=== PATIENT | male | born 1940 | race Caucasian/White ===

== ENCOUNTER → 2016-08-22 | Outpatient (CLI) | payer MEDICARE | END | disposition home or self-care (01) | LOC: PCVCCLINIC 12:00 | PROVIDERS: ATTEND Internal Medicine Cardiovascular Disease | DX: I10 Essential (primary) hypertension (principal); I71.2 Thoracic aortic aneurysm, without rupture; E78.00 Pure hypercholesterolemia, unspecified; Z79.82 Long term (current) use of aspirin; Z79.899 Other long term (current) drug therapy | CPT/HCPCS: 80061; 93005; G0463 ==

== ENCOUNTER → 2017-02-10 | Outpatient (CLI) | payer MEDICARE ==
--- NOTE | 2017-02-10 16:56 | PCVCIMAG ---
APPROVED REPORT Study performed: 02/10/2017 13:34:22 EXAM: Comprehensive 2D, Doppler, and color-flow Echocardiogram Patient Location: Echo lab Status: routine BSA: 2.00 HR: 63 bpmBP: 112/70 mmHg Rhythm: NSR Other Information Study Quality: Adequate Risk Factors: Cardiac Risk Factors: HTN, Hyperlipidemia Indications Fatigue Ascending aortic aneurysm 2D Dimensions LVEF(%): 62.07 (>50%) IVSd: 8.52 (7-11mm)LVOT Diam: 20.65 (18-24mm) LVDd: 51.99 mm PWd: 9.22 (7-11mm)Ascending Ao: 49.00 (22-36mm) LVDs: 34.49 (25-40mm) Left Atrium: 30.58 (27-40mm) Aortic Root: 43.64 mm LV Single Plane 4CH: 69.72 % LV Single Plane 2CH: 67.18 %Ritter's LVEF: 68.45 % Biplane EF: 70.1 % Volumes Left Atrial Volume (Systole) Single Plane 4CH: 39.40 mLSingle Plane 2CH: 43.49 mL LA ESV Index: 23.00 mL/m2 Aortic Valve AoV Peak Gagandeep.: 1.37 m/s AO Peak Gr.: 7.56 mmHgLVOT Max P.35 mmHg LVOT Max V: 1.04 m/s OSMANY Vmax: 2.54 cm2 AI Vmax: 4.44 m/s AI [place]: 1.61 m/s2 AI PHT: 799.48 ms Mitral Valve E/A Ratio: 0.7 MV Decel. Time: 373.62 ms MV E Max Gagandeep.: 0.54 m/s MV A Gagandeep.: 0.76 m/s IVRT: 106.11 ms TDI E/Lateral E': 9.00E/Medial E': 18.00 Medial E' Gagandeep.: 0.03 m/s Lateral E' Gagandeep.: 0.06 m/s Pulmonary Valve PV Peak Gagandeep.: 0.91 m/sPV Peak Gr.: 3.34 mmHg IL End Vmax: 1.03 m/s Pulmonary Vein P Vein S: 0.54 m/sP Vein A: 0.29 m/s P Vein D: 0.31 m/sP Vein A Dur.: 138.4 msec P Vein S/D Ratio: 1.74 Tricuspid Valve TR Peak Gagandeep.: 2.62 m/sRAP Estimate: 7.00 mmHg TR Peak Gr.: 27.45 mmHg PA Pressure: 35.00 mmHg Left Ventricle Left ventricle is borderline dilated. There is normal LV segmental wall motion. There is normal left ventricular wall thickness. Left ventricular systolic function is normal. The left ventricular ejection fraction is within the normal range. LVEF is 65-70%. Grade I - abnormal relaxation pattern. Right Ventricle The right ventricle is normal size. The right ventricular systolic function is normal. Atria The left atrium size is normal. The right atrium size is normal. Aortic Valve The aortic valve is normal in structure. Mild aortic regurgitation. There is no aortic valvular stenosis. Mitral Valve The mitral valve is normal in structure. Mild to moderate mitral regurgitation. No evidence of mitral valve stenosis. Tricuspid Valve The tricuspid valve is normal in structure. Mild tricuspid regurgitation.Pulmonary artery pressure is 35 mmHg. Pulmonic Valve The pulmonary valve is normal in structure. Mild pulmonic regurgitation. Great Vessels Aortic root is mildly dilated. Ascending aorta is 4.9 cm. IVC is normal in size and collapses with >50% inspiration. Pericardium There is no pericardial effusion. <Conclusion> Left ventricle is borderline dilated. Left ventricular systolic function is normal. The left ventricular ejection fraction is within the normal range. LVEF is 65-70%. Grade I - abnormal relaxation pattern. The right ventricle is normal size. The left atrium size is normal. Mild aortic regurgitation. There is no aortic valvular stenosis. Mild to moderate mitral regurgitation. Mild tricuspid regurgitation.Pulmonary artery pressure is 35 mmHg. There is no pericardial effusion.
== END | disposition home or self-care (01) ==
LOC: PCVCIMAG 13:29
PROVIDERS: ATTEND Internal Medicine Cardiovascular Disease
DX: I08.3 Combined rheumatic disorders of mitral, aortic and tricuspid valves (principal); I10 Essential (primary) hypertension; I71.2 Thoracic aortic aneurysm, without rupture; E78.00 Pure hypercholesterolemia, unspecified; R00.1 Bradycardia, unspecified; R53.83 Other fatigue; Z79.82 Long term (current) use of aspirin; Z79.899 Other long term (current) drug therapy
CPT/HCPCS: 80061; 93005; 93306; G0463

== ENCOUNTER → 2017-11-11 | Outpatient (CLI) | payer MEDICARE ==
--- NOTE | 2017-11-11 12:50 | PCVCIMAG ---
APPROVED REPORT Study performed: 11/11/2017 11:06:59 EXAM: Comprehensive 2D, Doppler, and color-flow Echocardiogram Patient Location: Echo lab Status: routine BSA: 2.00 HR: 56 bpmBP: 124/72 mmHg Rhythm: NSR Other Information Study Quality: Adequate Risk Factors: Cardiac Risk Factors: HTN, Hyperlipidemia Indications Ascending Aortic Aneurysm 2D Dimensions LVEF(%): 68.35 (>50%) IVSd: 8.86 (7-11mm)LVOT Diam: 20.00 (18-24mm) LVDd: 50.50 mm PWd: 8.74 (7-11mm)Ascending Ao: 48.83 (22-36mm) LVDs: 31.13 (25-40mm) Left Atrium: 32.71 (27-40mm) Aortic Root: 44.49 mm LV Single Plane 4CH: 65.64 % LV Single Plane 2CH: 70.00 %Ritter's LVEF: 67.82 % Biplane EF: 72.1 % Volumes Left Atrial Volume (Systole) Single Plane 4CH: 24.92 mLSingle Plane 2CH: 51.41 mL LA ESV Index: 21.00 mL/m2 Aortic Valve AoV Peak Gagandeep.: 1.24 m/s AO Peak Gr.: 6.14 mmHgLVOT Max P.72 mmHg LVOT Max V: 0.96 m/s OSMANY Vmax: 2.50 cm2 AI Vmax: 3.87 m/s AI [place]: 1.37 m/s2 AI PHT: 828.37 ms Mitral Valve E/A Ratio: 0.7 MV Decel. Time: 438.47 ms MV E Max Gagandeep.: 0.43 m/s MV A Gagandeep.: 0.63 m/s MV PHT: 127.16 ms IVRT: 83.04 ms TDI E/Lateral E': 8.60E/Medial E': 8.60 Medial E' Gagandeep.: 0.05 m/s Lateral E' Gagandeep.: 0.05 m/s Pulmonary Valve PV Peak Gagandeep.: 0.83 m/sPV Peak Gr.: 2.73 mmHg ND End Vmax: 1.12 m/s Pulmonary Vein P Vein S: 0.58 m/sP Vein A: 0.24 m/s P Vein D: 0.33 m/sP Vein A Dur.: 124.6 msec P Vein S/D Ratio: 1.76 Tricuspid Valve TR Peak Gagandeep.: 2.55 m/sRAP Estimate: 7.00 mmHg TR Peak Gr.: 25.95 mmHg PA Pressure: 33.00 mmHg Left Ventricle Left ventricle is borderline dilated. There is normal LV segmental wall motion. There is normal left ventricular wall thickness. Left ventricular systolic function is normal. The left ventricular ejection fraction is within the normal range. LVEF is 65-70%. Grade I - abnormal relaxation pattern. Right Ventricle The right ventricle is normal size. The right ventricular systolic function is normal. Atria The left atrium size is normal. The right atrium size is normal. Aortic Valve The aortic valve is normal in structure. Mild aortic regurgitation. There is no aortic valvular stenosis. Mitral Valve The mitral valve is normal in structure. Mild to moderate mitral regurgitation. No evidence of mitral valve stenosis. Tricuspid Valve The tricuspid valve is normal in structure. Mild to moderate tricuspid regurgitation. Pulmonary artery pressure is 33 mmHg. Pulmonic Valve The pulmonary valve is normal in structure. Mild pulmonic regurgitation. Great Vessels The aortic root is dilated at 4.4 cm. The ascending aorta is dilated at 4.9 cm. IVC is normal in size and collapses >50% with inspiration. Pericardium There is no pericardial effusion. <Conclusion> Left ventricle is borderline dilated. LVEF is 65-70%. Grade I - abnormal relaxation pattern. The right ventricle is normal size. The left atrium size is normal. The aortic valve is normal in structure. There is no aortic valvular stenosis. Mild to moderate mitral regurgitation. Mild to moderate tricuspid regurgitation. Pulmonary artery pressure is 33 mmHg. Mild pulmonic regurgitation. The aortic root is dilated at 4.4 cm. The ascending aorta is dilated at 4.9 cm. There is no pericardial effusion.
== END | disposition home or self-care (01) ==
LOC: PCVCIMAG 13:20
PROVIDERS: ATTEND Internal Medicine Cardiovascular Disease
DX: I08.1 Rheumatic disorders of both mitral and tricuspid valves (principal); I71.2 Thoracic aortic aneurysm, without rupture; I10 Essential (primary) hypertension; E78.00 Pure hypercholesterolemia, unspecified; Z79.82 Long term (current) use of aspirin
CPT/HCPCS: 93005; 93306; G0463

== ENCOUNTER → 2018-06-30 | Outpatient (CLI) | payer MEDICARE | END | disposition home or self-care (01) | LOC: PCVCCLINIC 13:35 | PROVIDERS: ATTEND Internal Medicine Cardiovascular Disease | DX: I71.2 Thoracic aortic aneurysm, without rupture (principal); E78.00 Pure hypercholesterolemia, unspecified; I10 Essential (primary) hypertension; I34.0 Nonrheumatic mitral (valve) insufficiency | CPT/HCPCS: 36415; 80061; 93005; G0463 ==

== ENCOUNTER → 2018-07-08 | Outpatient (CLI) | payer MEDICARE ==
--- NOTE | 2018-07-08 10:46 | PCVCIMAG ---
APPROVED REPORT Study performed: 07/08/2018 10:11:56 EXAM: Comprehensive 2D, Doppler, and color-flow Echocardiogram Patient Location: Echo lab Status: routine BSA: 2.00 BP: 140/90 mmHg Rhythm: NSR Other Information Study Quality: Adequate Risk Factors: Cardiac Risk Factors: HTN, Hyperlipidemia, Dilated Ascending Aorta Indications Limited echo for RV size and pulmonary artery pressure. Left Ventricle normal lv size 55-60% Right Ventricle Right ventricle is mildly dilated. Atria normal upper limits normal Aortic Valve Trace aortic regurgitation. Tricuspid Valve Trace tricuspid regurgitation. Pulmonary artery pressure is 34mmhg. Great Vessels The ascending aorta is dilated measuring 5.0cm. responsive <Conclusion> normal lv size 55-60% Right ventricle is mildly dilated. pa pressure 35mmhg normal upper limits normal Trace aortic regurgitation. responsive The ascending aorta is dilated measuring 5.0cm.
== END | disposition home or self-care (01) ==
LOC: PCVCIMAG 07:26
PROVIDERS: ATTEND Internal Medicine Cardiovascular Disease
DX: I26.99 Other pulmonary embolism without acute cor pulmonale (principal); I10 Essential (primary) hypertension; E78.00 Pure hypercholesterolemia, unspecified; I71.2 Thoracic aortic aneurysm, without rupture; Z79.82 Long term (current) use of aspirin
CPT/HCPCS: 93005; 93308; G0463

== ENCOUNTER → 2018-10-01 | Outpatient (CLI) | payer MEDICARE | END | disposition home or self-care (01) | LOC: PCVCCLINIC 15:15 | PROVIDERS: ATTEND Internal Medicine Cardiovascular Disease | DX: I26.99 Other pulmonary embolism without acute cor pulmonale (principal); I10 Essential (primary) hypertension; I71.2 Thoracic aortic aneurysm, without rupture; E78.00 Pure hypercholesterolemia, unspecified; D68.59 Other primary thrombophilia; Z72.89 Other problems related to lifestyle; Z79.82 Long term (current) use of aspirin; Z79.899 Other long term (current) drug therapy | CPT/HCPCS: 36415; 80061; 93005; G0463 ==

== ENCOUNTER → 2019-02-22 | Outpatient (CLI) | payer MEDICARE ==
--- NOTE | 2019-02-22 12:29 | PCVCIMAG ---
APPROVED REPORT Study performed: 02/22/2019 10:26:15 EXAM: Comprehensive 2D, Doppler, and color-flow Echocardiogram Patient Location: Echo lab Status: routine BSA: 2.03 HR: 45 bpmBP: 160/80 mmHg Rhythm: Bradycardia Other Information Study Quality: Good Risk Factors: Cardiac Risk Factors: HTN, Hyperlipidemia Indications Thoracic Aortic Aneurysm 2D Dimensions IVSd: 15.02 (7-11mm)LVOT Diam: 20.41 (18-24mm) LVDd: 33.61 mm PWd: 14.77 (7-11mm)Ascending Ao: 48.63 (22-36mm) LVDs: 28.94 (25-40mm) Left Atrium: 20.15 (27-40mm) Aortic Root: 46.12 mm LV Single Plane 4CH: 64.63 % LV Single Plane 2CH: 78.37 % Biplane EF: 74.5 % Volumes Left Atrial Volume (Systole) Single Plane 4CH: 37.33 mLSingle Plane 2CH: 39.94 mL LA ESV Index: 23.00 mL/m2 Aortic Valve LVOT Max P.47 mmHg LVOT Max V: 0.93 m/s AI Vmax: 4.20 m/s AI [place]: 1.26 m/s2 AI PHT: 964.50 ms Mitral Valve E/A Ratio: 0.7 MV Decel. Time: 207.91 ms MV E Max Gagandeep.: 0.51 m/s MV A Gagandeep.: 0.76 m/s IVRT: 114.19 ms TDI E/Lateral E': 7.29E/Medial E': 6.38 Medial E' Gagandeep.: 0.08 m/s Lateral E' Gagandeep.: 0.07 m/s Pulmonary Valve PV Peak Gr.: 1.99 mmHg Pulmonary Vein P Vein S: 0.36 m/sP Vein A: 0.44 m/s P Vein D: 0.36 m/sP Vein A Dur.: 79.6 msec P Vein S/D Ratio: 1.00 Tricuspid Valve TR Peak Gagandeep.: 2.72 m/s TR Peak Gr.: 29.57 mmHg Left Ventricle The left ventricle is normal size. There is normal LV segmental wall motion. There is normal left ventricular wall thickness. Left ventricular systolic function is normal. The left ventricular ejection fraction is within the normal range. LVEF is 65%. Right Ventricle The right ventricle is normal size. The right ventricular systolic function is normal. Atria The left atrium size is normal. The right atrium size is normal. Aortic Valve Aortic root measures 4.4.cm. Sinus of valsalva measures 4.8cm. Mild aortic regurgitation. There is no aortic valvular stenosis. Mitral Valve The mitral valve is normal in structure. Mild mitral regurgitation. No evidence of mitral valve stenosis. Tricuspid Valve The tricuspid valve is normal in structure. Mild tricuspid regurgitation. Pulmonary artery pressure is 36mmHg. Pulmonic Valve The pulmonary valve is normal in structure. There is no pulmonic valvular regurgitation. Great Vessels The aortic root is normal in size. The ascending aorta is dilated measuring 4.9 to 5.1 cm. IVC is normal in size and collapses >50% with inspiration. Pericardium There is no pericardial effusion. <Conclusion> The left ventricle is normal size. LVEF is 65%. The right ventricle is normal size. The left atrium size is normal. Aortic root measures 4.4.cm. Sinus of valsalva measures 4.8cm. Mild aortic regurgitation. Mild mitral regurgitation. Mild tricuspid regurgitation. Pulmonary artery pressure is 36mmHg. The aortic root is normal in size. The ascending aorta is dilated measuring 4.9 to 5.1 cm. There is no pericardial effusion.
== END | disposition home or self-care (01) ==
LOC: PCVCIMAG 10:22
PROVIDERS: ATTEND Internal Medicine Cardiovascular Disease
DX: I08.3 Combined rheumatic disorders of mitral, aortic and tricuspid valves (principal); I71.2 Thoracic aortic aneurysm, without rupture; I10 Essential (primary) hypertension; E78.00 Pure hypercholesterolemia, unspecified
CPT/HCPCS: 93306